=== PATIENT | male | born 1935 | race Caucasian/White ===

== ENCOUNTER 2016-12-07 06:43 | Emergency (ER) | payer OTHER ==
[~2016-12-07] VITALS: Ht 162.6 cm; Wt 64.0 kg
[2016-12-07 06:46] VITALS: Ht 162.6 cm; Wt 64.0 kg
[2016-12-07] MEDS ORDERED: ACETAMINOPHEN 325 MG TAB PO STA (06:59)
[2016-12-07] MEDS ORDERED: SODIUM CHLORIDE 0.9% 1L BAG IV* STA (06:59)
[2016-12-07 07:39] LABS: BASOPHILS % 0.1 % (0.0-2.0); EOSINOPHILS % 0.2 % (0.0-7.0); HEMATOCRIT 44.3 % (42.0-52.0); HEMOGLOBIN 15.3 g/dl (14.0-18.0); LYMPHOCYTES # 1.1 10^3/ul (0.8-2.9); MEAN CORPUSCULAR HEMOGLOBIN 30.2 pg (29.0-33.0); MEAN CORPUSCULAR HGB CONC 34.5 g/dl (32.0-37.0); MEAN CORPUSCULAR VOLUME 87.5 fl (82.0-101.0); MEAN PLATELET VOLUME 10.5 fl (7.4-10.4); MONOCYTES % 8.5 % (0.0-11.0); NEUTROPHIL # 9.5 10^3/ul (1.6-7.5); NEUTROPHILS % 81.8 % (39.0-77.0); PLATELET COUNT 181 10^3/UL (140-415); RED BLOOD COUNT 5.06 10^6/ul (4.70-6.10); RED CELL DISTRIBUTION WIDTH 12.3 % (11.5-14.5); WHITE BLOOD COUNT 11.6 10^3/ul (4.8-10.8)
[2016-12-07 07:58] LABS: ALANINE AMINOTRANSFERASE 31 IU/L (13-69); ALBUMIN 4.1 g/dl (3.3-4.9); ALBUMIN/GLOBULIN RATIO 1.02; ALKALINE PHOSPHATASE 94 IU/L (42-121); ANION GAP 16 (8-16); ASPARTATE AMINO TRANSFERASE 25 IU/L (15-46); BILIRUBIN,INDIRECT 0.7 mg/dl (0-1.1); BILIRUBIN,TOTAL 0.7 mg/dl (0.2-1.3); BLOOD UREA NITROGEN 14 mg/dl (7-20); CALCIUM 9.6 mg/dl (8.4-10.2); CARBON DIOXIDE 24 mmol/L (21-31); CHLORIDE 108 mmol/L (97-110); CREATININE 1.04 mg/dl (0.61-1.24); GLUCOSE 110 mg/dl (70-220); POTASSIUM 4.1 mmol/L (3.5-5.1); SODIUM 144 mmol/L (135-144); TOTAL PROTEIN 8.1 g/dl (6.1-8.1)
[2016-12-07 08:23] LABS: TROPONIN-I < 0.012 ng/ml (0.00-0.12)
[2016-12-07 08:36] LABS: INR 1.19; PROTIME 15.2 Sec (12.2-14.2); PT RATIO 1.2
[2016-12-07 08:37] LABS: PARTIAL THROMBOPLASTIN TIME 35.9 Sec (25.0-35.0)
[2016-12-07] MEDS ORDERED: CEFTRIAXONE 1 GM/50 ML (PMX) 50 ML IVPB STA (09:04)
[2016-12-07] MEDS ORDERED: AZITHROMYCIN 500MG/NS (PMX) 250 ML IV STA (09:04)
[2016-12-07 09:22] LABS: ADD UMIC NO; UR ASCORBIC ACID NEGATIVE (NEGATIVE); UR BILIRUBIN (Dip) NEGATIVE (NEGATIVE); UR BLOOD (Dip) NEGATIVE (NEGATIVE); UR CLARITY CLEAR (CLEAR); UR COLOR YELLOW (YELLOW); UR GLUCOSE (Dip) NEGATIVE (NEGATIVE); UR KETONES (Dip) NEGATIVE (NEGATIVE); UR LEUKOCYTE ESTERASE (Dip) NEGATIVE Leu/ul (NEGATIVE); UR NITRITE (Dip) NEGATIVE (NEGATIVE); UR SPECIFIC GRAVITY (Dip) 1.021 (1.003-1.030); UR TOTAL PROTEIN (Dip) NEGATIVE (NEGATIVE); UR UROBILINOGEN (Dip) NEGATIVE (NEGATIVE)
--- NOTE | 2016-12-07 09:37 | ERD ---
ER Documentation Chief Complaint Chief Complaint DIZZINESS AND WEAKNESS SINCE 12/04/16, NAUSEA AND VOMITING HPI This is an 81-year-old male who presents to the emergency room for evaluation of fever, weakness and a dry cough. Patient has had one episode of vomiting. The patient describes his vomit is nonbilious and nonbloody. The patient denies any chest pain at this time. He denies any aggravating or relieving factors for his symptoms and was brought to the ER for evaluation. He has not taken any medication at home for fever. The patient does state that he had a cataract removal from his left eye 48 hours ago. Patient has no other complaints at this time and came to the emergency room for further evaluation of his symptoms ROS All systems reviewed and are negative except as per history of present illness. Medications Home Meds No Active Prescriptions or Reported Meds Allergies Allergies: Coded Allergies: No Known Allergy (Unverified , 12/07/16) PMhx/Soc History of Surgery: Yes (lt eye cataract surgery ) Anesthesia Reaction: No Hx Neurological Disorder: No Hx Respiratory Disorders: No Hx Cardiac Disorders: No Hx Psychiatric Problems: No Hx Miscellaneous Medical Probl: No Hx Alcohol Use: No Hx Substance Use: No Hx Tobacco Use: No Smoking Status: Never smoker Physical Exam Vitals Vital Signs Date Time Temp Pulse Resp B/P Pulse Ox O2 Delivery O2 Flow Rate FiO2 12/07/16 09:00 98.8 70 18 116/62 97 Room Air 12/07/16 06:46 102.1 102 18 107/61 98 Physical Exam INITIAL VITAL SIGNS: Reviewed by me GENERAL: The patient is well developed and appropriate for usual state of health in no apparent distress HEENT: Dry mucous membranes, lens in place in left eye, pupils equal, round, and reactive to light. EOMI. There is no scleral icterus. NECK: C-spine is soft and supple, there is no meningismus. There is no cervical lymphadenopathy. LUNGS: Coarse breath sounds bilaterally. There are no rales, wheezes or rhonchi. HEART: Tachycardic, no murmurs, clicks, rubs or gallops. ABDOMEN: Soft, non-tender, non-distended. There are bowel sounds in all four quadrants. No rebound or guarding. EXTREMITIES: There is no peripheral cyanosis or edema. No focal swelling or erythema. NEUROLOGICAL: The patient moves all four extremities with 5/5 strength. Cranial nerves II - XII are intact. Normal gait. Alert and oriented SKIN: There is no apparent rash or petechiae. HEME/LYMPHATIC: There is no evidence of excessive bruising or lymphedema. PSYCHIATRIC: The patient does not appear anxious or depressed. Result Diagram: 12/07/16 0700 12/07/16 0700 Results 24 hrs Laboratory Tests Test 12/07/16 07:00 12/07/16 09:00 White Blood Count 11.610^3/ul Red Blood Count 5.0610^6/ul Hemoglobin 15.3g/dl Hematocrit 44.3% Mean Corpuscular Volume 87.5fl Mean Corpuscular Hemoglobin 30.2pg Mean Corpuscular Hemoglobin Concent 34.5g/dl Red Cell Distribution Width 12.3% Platelet Count 17132^3/UL Mean Platelet Volume 10.5fl Neutrophils % 81.8% Lymphocytes % 9.0% Monocytes % 8.5% Eosinophils % 0.2% Basophils % 0.1% Nucleated Red Blood Cells % 0.0/100WBC Neutrophils # 9.510^3/ul Lymphocytes # 1.110^3/ul Monocytes # 1.010^3/ul Eosinophils # 0.010^3/ul Basophils # 0.010^3/ul Nucleated Red Blood Cells # 0.010^3/ul Prothrombin Time 15.2Sec Prothrombin Time Ratio 1.2 INR International Normalized Ratio 1.19 Activated Partial Thromboplast Time 35.9Sec Sodium Level 144mmol/L Potassium Level 4.1mmol/L Chloride Level 108mmol/L Carbon Dioxide Level 24mmol/L Anion Gap 16 Blood Urea Nitrogen 14mg/dl Creatinine 1.04mg/dl Glucose Level 110mg/dl Lactic Acid Level 1.9mmol/L 1.4mmol/L Calcium Level 9.6mg/dl Total Bilirubin 0.7mg/dl Direct Bilirubin 0.00mg/dl Indirect Bilirubin 0.7mg/dl Aspartate Amino Transf (AST/SGOT) 25IU/L Alanine Aminotransferase (ALT/SGPT) 31IU/L Alkaline Phosphatase 94IU/L Troponin I < 0.012ng/ml Total Protein 8.1g/dl Albumin 4.1g/dl Globulin 4.00g/dl Albumin/Globulin Ratio 1.02 Urine Color YELLOW Urine Clarity CLEAR Urine pH 5.0 Urine Specific [place] 1.021 Urine Ketones NEGATIVEmg/dL Urine Nitrite NEGATIVEmg/dL Urine Bilirubin NEGATIVEmg/dL Urine Urobilinogen NEGATIVEmg/dL Urine Leukocyte Esterase NEGATIVELeu/ul Urine Hemoglobin NEGATIVEmg/dL Urine Glucose NEGATIVEmg/dL Urine Total Protein NEGATIVEmg/dl Current Medications Medications (Trade) Dose Ordered Sig/Maria Teresa Route PRN Reason Start Time Stop Time Status Last Admin Dose Admin Sodium Chloride (NS) 1,980 ml BOLUS OVER 2 HOURS STAT IV* 12/07/16 06:59 12/07/16 07:00 DC 12/07/16 07:13 Acetaminophen 650 mg 650 mg ONCE STAT PO 12/07/16 06:59 12/07/16 07:00 DC 12/07/16 07:12 Azithromycin 250 ml @ 250 mls/hr ONCE STAT IV 12/07/16 09:04 12/07/16 10:03 Ceftriaxone Sodium (Rocephin) 50 ml @ 100 mls/hr ONCE STAT IVPB 12/07/16 09:04 12/07/16 09:33 DC 12/07/16 09:15 Procedures/MDM Chest X-ray 1V Interpreted by me: Soft Tissue: Left lower lobe pneumonia Bones: No acute abnormalities Mediastinum/Cardiac Silhouette/Lungs: [No acute abnormalities] EKG: Rate/Rhythm: [Normal Sinus Rhythm] QRS, ST, T-waves: [No changes consistent w/ acute ischemia] Impression: [No evidence of ischemia or arrhythmia] This is an 81-year-old male who presents to the ER for evaluation of a fever. When I evaluated this patient he was febrile, tachycardic. The patient did have blood work drawn in the emergency room and x-ray was obtained which does show a left lobe pneumonia. This patient did receive 30 cc/kg of IV normal saline. The patient was started on Rocephin and azithromycin after blood and urine cultures were obtained. This patient will be transferred to [facility] based off of his insurance which Irritates him to that hospital. The patient is hemodynamically stable at this time with no signs of hypotension and no need for vasopressors. He does meet sepsis criteria and will be transferred. Critical Care: Excluding all billable procedures Time: 35 minutes Treatments/Evaluations: Close monitoring and treatment of unstable vital signs, cardiorespiratory, and neurologic status, while maintaining tight balance of fluid, respiratory, and cardiac interventions. Departure Diagnosis: Primary Impression: Sepsis Additional Impression: Left lower lobe pneumonia Condition: Stable VANESSA SOUZA DO Dec 07, 2016 09:37
--- NOTE | 2016-12-07 15:04 | RADRPT ---
PROCEDURE: XR Chest. CLINICAL INDICATION: Dizziness. TECHNIQUE: Single frontal view. COMPARISON: None. FINDINGS: There is mild left basilar atelectasis or pneumonia. The lungs are otherwise clear. The heart size is normal. There is no pleural effusion. There is no pneumothorax. There are degenerative changes of the right glenohumeral joint. IMPRESSION: 1. Mild atelectasis or pneumonia at the left lung base. 2. Degenerative changes of the right glenohumeral joint. 3. Otherwise normal chest x-ray. RPTAT: QQ .Waldo Yepez MD, Date Time Electronically viewed and signed by .Waldo Yepez MD, on 12/07/2016 15:03 .R/
[2016-12-07] MEDS ORDERED: ALBU8.5H3 INH (22:12)
[2016-12-07] MEDS ORDERED: LEVO500T72 PO (22:12)
[2016-12-07] MEDS ORDERED: IBUP400T22 PO (22:12)
[2016-12-07] MEDS ORDERED: IBUPROFEN 200 MG TAB ONE (22:30)
[2016-12-07] MEDS ORDERED: IBUPROFEN 200 MG TAB PO ONE (23:00)
--- NOTE | 2016-12-07 23:01 | EN ---
Date/Time of Note Date/Time of Note DATE: 12/07/16 TIME: 22:52 ER Progress Note HPI: 81-year-old man here already for 15 hours, diagnosed with sepsis and left- sided pneumonia was set up for transfer but the admitting physician Dr. Keys was unable to connect with the ED physician to accept the transfer. At this point patient has no complaints and states he feels much better compared to when he came in. He denies chest pain or shortness of breath. Past medical history: Physical exam: GENERAL: Well-developed, well-nourished, well-hydrated, in no apparent distress , looks nontoxic in appearance HEENT: Moist mucous membranes, pink conjunctiva, no cervical spine tenderness or step-off deformities, no goiter, no jaundice or icterus, extraocular movements intact without pain. No submandibular induration, and no pharyngeal erythema NEURO: Alert and oriented 3, cranial nerves II through XII intact bilaterally, pupils equal round reactive to light, no focal deficits or facial asymmetry, sensation intact distally Strength 5/5 in upper and lower extremities bilaterally CARDIAC: Regular rate and rhythm, no murmurs rubs or gallops LUNGS: Clear bilaterally no wheezing crackles or stridor ABDOMEN: Soft nontender, no guarding, no rigidity, no rebound, no psoas sign no obturator sign. Normoactive bowel sounds SKIN: Warm and dry to touch, no abrasions, contusions, or hematomas, no lacerations, no ecchymosis, no target lesions, and without ulcers EXTREMITIES: No clubbing cyanosis or edema, calves are bilaterally symmetrical, no Homans sign, no popliteal cord sign. Distal pulses equal and bilateral PSYCH: Normal affect without agitation or irritability Medical decision making: I spoke to Dr. Keys regarding the patient's ED evaluation, imaging, and labs. The lactic acid has been below 2, his vital signs are normal, is curb 65 score is 1 for age and PSI score is 3 both of which portend a favorable prognosis with outpatient management and oral antibiotics. Dr. Keys stated he would set up for outpatient reevaluation and follow-up. Patient was informed of today's workup and management, and agreed and preferred outpatient management at home with oral antibiotics. Differential diagnoses considered, included but not limited to acute coronary syndrome, pulmonary embolism, aortic dissection, abdominal aortic aneurysm, sepsis, stroke, meningitis, encephalitis, pneumonia, appendicitis, cholecystitis , bowel obstruction, pyelonephritis, nephrolithiasis, cystitis, as well as metabolic, hematologic, and electrolyte abnormalities. As well as abscess, cellulitis, fractures, and dislocations. Patient feels much better at this time, and vital signs are normal, symptoms have improved. I did give strict instructions to return to the ED if symptoms continue or worsen, patient will otherwise follow-up with primary care physician. Patient understood instructions and agreed to plan. Disclaimer: Inadvertent spelling and grammatical errors are likely due to EHR/ dictation software use and do not reflect on the overall quality of patient care. Also, please note that the electronic time recorded on this note does not necessarily reflect the actual time of the patient encounter. Diagnostic impression: Community-acquired pneumonia MARIA C PÉREZ MD Dec 07, 2016 23:01
[2016-12-08 00:16] VITALS: BP 123/67; PULSE 87; RESP 19; TEMP 100
== END 2016-12-08 00:18 | disposition home or self-care (01) ==
LOC: E/R 06:43
DX: A41.9 Sepsis, unspecified organism (principal); J18.1 Lobar pneumonia, unspecified organism
CPT/HCPCS: 36415; 71010; 80053; 81003; 83605; 84484; 85025; 85610; 85730; 87040; 87086; 87400; 93005; 96374; 96375; J0456; J0696; J7030; Z7502; Z7610

== ENCOUNTER 2016-12-09 11:52 | Emergency (ER) | payer OTHER ==
[~2016-12-09] VITALS: Wt 65.5 kg
[~2016-12-09 11:52] MED LIST: ALBU8.5H3 INH; IBUP400T22 PO; LEVO500T72 PO
--- NOTE | 2016-12-09 14:30 | RADRPT ---
PROCEDURE: XR Chest. CLINICAL INDICATION: Pneumonia. Dyspnea. TECHNIQUE: Single frontal chest x-ray. COMPARISON: Chest x-ray 12/07/2016 FINDINGS: Subtle interstitial infiltration is seen within the lung bases, right greater than left, the appeara nces are new/worse when compared to the previous study. Subtle developing pneumonia is a definite c onsideration. The cardiomediastinal silhouette is unremarkable. There is no pneumothorax. The surrou nding osseous structures are remarkable for benign chronic senescent changes. Chronic degenerative c hanges of the shoulder joints is seen bilaterally. IMPRESSION: 1. Patchy infiltration / pneumonia developing within the lung bases bilaterally. 2. Benign chronic senescent changes seen elsewhere throughout the study, stable. RPTAT: PP .David Solares MD, Date Time Electronically viewed and signed by .David Solares MD, MD on 12/09/2016 14:29 .B/
--- NOTE | 2016-12-09 15:11 | RADRPT ---
PROCEDURE: CT Abdomen and Pelvis without intravenous contrast. CLINICAL INDICATION: Right flank pain . Possible sepsis TECHNIQUE: CT scan of the abdomen and pelvis without intravenous contrast was performed on a multi -slice CT scanner. Coronal and sagittal reformatted images were obtained from the axial source image s. Images were reviewed on a high-resolution PACS workstation. Total DLP = 437.6 mGy-cm. CTDIvol = 6.9 mGy. One or more of the following dose reduction techniques were used: Automated exposure control. Adjustment of the mA and/or kV according to patient size. Use of iterative reconstruction technique. COMPARISON: None. FINDINGS: CT abdomen and pelvis: The lung bases demonstrates mild focal consolidation and trace right pleural effusion at the right l bradley base.. The heart size is normal in size. The liver is normal in size and density without focal mass or intrahepatic biliary dilatation. There are hepatic cysts seen in the left lobe of the liver .. The spleen is normal in size and homogeneous in density. The pancreas as visualized is normal. The gallbladder shows no evidence of stones or distension . The adrenal glands are normal. The kidneys are symmetrically unremarkable. No urolithiasis, obstructive uropathy, or solid mass lesion is seen. There is a right renal cyst present. The stomach is partially collapsed, but is grossly unremarkable. There is a moderate hiatal hernia.. The small bowels are unremarkable. The colon and rectum are normal. There is no evidence of appen dicitis or diverticulitis. The pelvic organs are normal. The bladder is normal. There is no abdomina l or pelvic adenopathy, free fluid, free air, mass or mesenteric inflammation. The aorta is normal in caliber and course. The osseous structures showing degenerative enthesopathy of the spine. No osteolytic or osteoblastic lesions are identified. There is mild left inguinal he rnia containing fat.. Lack of IV and oral contrast limits sensitivity of exam. IMPRESSION: 1. Focal right basilar pulmonary consolidation and trace right pleural effusion. Findings suspiciou s for right basilar pneumonia with parapneumonic effusion which may be the cause of right flank pain . 2. Hepatic and right renal cyst. 3. Moderate hiatal hernia. 4. Mild fat-containing left inguinal hernia. RPTAT: GG .Bryan Lang MD, MD Date Time Electronically viewed and signed by .Bryan Lang MD, MD on 12/09/2016 15:10 .L/
[2016-12-09] MEDS ORDERED: AZITHROMYCIN 500MG/NS (PMX) 250 ML IV STA (15:45)
[2016-12-09] MEDS ORDERED: CEFTRIAXONE 1 GM/50 ML (PMX) 50 ML IVPB STA (15:45)
--- NOTE | 2016-12-09 16:40 | ERD ---
ER Documentation Chief Complaint Chief Complaint r. flank pain, dizziness. seem here on mon dx w pneumonia HPI This is an 81-year-old male who presents to the ER for evaluation of shortness of breath, generalized weakness and right-sided flank pain. The patient states that he was diagnosed with pneumonia last week. Patient's family states that they do not not know why they were discharged from the hospital. The patient came to the ER today for evaluation of his symptoms and states that he has been taking antibiotics as an outpatient but does not know the name of them. He denies any chills but does state he has had a fever and denies any relieving factors for her symptoms ROS All systems reviewed and are negative except as per history of present illness. Medications Home Meds Active Scripts Levofloxacin* (Levaquin*) 500 Mg Tablet, 500 MG PO DAILY for 6 Days, TAB Prov:MARIA C PÉREZ MD 12/07/16 Discontinued Scripts Ibuprofen* (Motrin*) 400 Mg Tab, 400 MG PO Q8 for FEVER, #30 TAB Prov:MARIA C PÉREZ MD 12/07/16 Albuterol Sulfate* (Proair HFA*) 8.5 Gm Hfa.aer.ad, 2 PUFF INH Q6H Y for COUGH, #1 INHALER Prov:MARIA C PÉREZ MD 12/07/16 Allergies Allergies: Coded Allergies: No Known Allergy (Unverified , 12/09/16) PMhx/Soc History of Surgery: Yes (lt eye cataract surgery ) Anesthesia Reaction: No Hx Neurological Disorder: No Hx Respiratory Disorders: No Hx Cardiac Disorders: No Hx Psychiatric Problems: No Hx Miscellaneous Medical Probl: No Hx Alcohol Use: No Hx Substance Use: No Hx Tobacco Use: No Smoking Status: Never smoker Physical Exam Vitals Vital Signs Date Time Temp Pulse Resp B/P Pulse Ox O2 Delivery O2 Flow Rate FiO2 12/09/16 16:32 98.9 89 18 128/65 99 Room Air 12/09/16 11:56 100.4 79 20 121/65 96 Physical Exam INITIAL VITAL SIGNS: Reviewed by me GENERAL: The patient is elderly male no acute distress, warm to touch HEENT: Pupils equal, round, and reactive to light. EOMI. There is no scleral icterus. NECK: C-spine is soft and supple, there is no meningismus. There is no cervical lymphadenopathy. LUNGS: Coarse rhonchi bilaterally HEART: Regular rate and rhythm, no murmurs, clicks, rubs or gallops. ABDOMEN: Soft, non-tender, non-distended. There are bowel sounds in all four quadrants. No rebound or guarding. EXTREMITIES: There is no peripheral cyanosis or edema. No focal swelling or erythema. NEUROLOGICAL: The patient moves all four extremities with 5/5 strength. Cranial nerves II - XII are intact. Normal gait. Alert and oriented SKIN: There is no apparent rash or petechiae. HEME/LYMPHATIC: There is no evidence of excessive bruising or lymphedema. PSYCHIATRIC: The patient does not appear anxious or depressed. Result Diagram: 12/09/16 1400 12/09/16 1400 Results 24 hrs Laboratory Tests Test 12/09/16 14:00 12/09/16 14:15 White Blood Count 8.310^3/ul Red Blood Count 4.8110^6/ul Hemoglobin 14.8g/dl Hematocrit 42.1% Mean Corpuscular Volume 87.5fl Mean Corpuscular Hemoglobin 30.8pg Mean Corpuscular Hemoglobin Concent 35.2g/dl Red Cell Distribution Width 12.2% Platelet Count 52654^3/UL Mean Platelet Volume 10.9fl Neutrophils % 60.9% Lymphocytes % 18.1% Monocytes % 19.8% Eosinophils % 0.6% Basophils % 0.1% Nucleated Red Blood Cells % 0.0/100WBC Neutrophils # 5.110^3/ul Lymphocytes # 1.510^3/ul Monocytes # 1.610^3/ul Eosinophils # 0.110^3/ul Basophils # 0.010^3/ul Nucleated Red Blood Cells # 0.010^3/ul Prothrombin Time 14.7Sec Prothrombin Time Ratio 1.1 INR International Normalized Ratio 1.15 Activated Partial Thromboplast Time 44.9Sec Sodium Level 142mmol/L Potassium Level 3.4mmol/L Chloride Level 104mmol/L Carbon Dioxide Level 24mmol/L Anion Gap 17 Blood Urea Nitrogen 11mg/dl Creatinine 0.94mg/dl Glucose Level 118mg/dl Lactic Acid Level 1.9mmol/L Calcium Level 9.1mg/dl Total Bilirubin 1.2mg/dl Direct Bilirubin 0.00mg/dl Indirect Bilirubin 1.2mg/dl Aspartate Amino Transf (AST/SGOT) 26IU/L Alanine Aminotransferase (ALT/SGPT) 25IU/L Alkaline Phosphatase 72IU/L Troponin I < 0.012ng/ml Total Protein 8.1g/dl Albumin 4.6g/dl Globulin 3.50g/dl Albumin/Globulin Ratio 1.31 Urine Color HARPREET Urine Clarity CLEAR Urine pH 5.0 Urine Specific [place] 1.029 Urine Ketones NEGATIVEmg/dL Urine Nitrite NEGATIVEmg/dL Urine Bilirubin NEGATIVEmg/dL Urine Urobilinogen 1+mg/dL Urine Leukocyte Esterase NEGATIVELeu/ul Urine Microscopic RBC 1/HPF Urine Microscopic WBC 2/HPF Urine Bacteria FEW/HPF Urine Mucus MANY/HPF Urine Hemoglobin NEGATIVEmg/dL Urine Glucose NEGATIVEmg/dL Urine Total Protein 2+mg/dl Current Medications Medications (Trade) Dose Ordered Sig/Maria Teresa Route PRN Reason Start Time Stop Time Status Last Admin Dose Admin Ceftriaxone Sodium 50 ml @ 100 mls/hr ONCE STAT IVPB 12/09/16 15:45 12/09/16 16:14 DC 12/09/16 15:57 Azithromycin (Zithromax 500mg/ NS (Pmx)) 250 ml @ 250 mls/hr ONCE STAT IV 12/09/16 15:45 12/09/16 16:44 12/09/16 16:23 Procedures/MDM EKG: Rate/Rhythm: [Normal Sinus Rhythm] QRS, ST, T-waves: [No changes consistent w/ acute ischemia] Impression: [No evidence of ischemia or arrhythmia] Chest X-ray 1V Interpreted by me: Soft Tissue: No acute abnormalities Bones: No acute abnormalities Mediastinum/Cardiac Silhouette/Lungs: Right lobe pneumonia CT abdomen pelvis without:: 1. Focal right basilar pulmonary consolidation and trace right pleural effusion. Findings suspicious for right basilar pneumonia with parapneumonic effusion which may be the cause of right flank pain. 2. Hepatic and right renal cyst. 3. Moderate hiatal hernia. 4. Mild fat-containing left inguinal hernia. This 81-year-old male presents to the ER for the second time this week for evaluation of pneumonia. I evaluated this patient in the emergency room earlier this week. The patient was diagnosed with pneumonia and he was supposed be transferred however it appears that this patient was discharged from the ER per the admitting physician's request. This patient returns today for a worsening symptoms and as worsening pneumonia on his chest x-ray which is confirmed in the CT. The patient was started on community-acquired coverage in the emergency room and will be transferred over to [facility] at this time. I spoken to Dr. Danielle who accepts transfer. This patient is hemodynamically stable at this time and not hypoxic, he has failed outpatient pneumonia treatment Departure Diagnosis: Primary Impression: Right lower lobe pneumonia Additional Impression: Failure of outpatient treatment Condition: Stable VANESSA SOUZA DO Dec 09, 2016 16:40
[2016-12-09] MEDS ORDERED: ACETAMINOPHEN 325 MG TAB ONE (19:34)
[2016-12-09 19:42] VITALS: BP 114/64; PULSE 82; RESP 16; TEMP 100.7
== END 2016-12-09 20:16 | disposition short-term general hospital (02) ==
LOC: E/R 11:52
DX: J18.1 Lobar pneumonia, unspecified organism (principal)
CPT/HCPCS: 71010; 74176; 80053; 81001; 83605; 84484; 85025; 85610; 85730; 87040; 87086; 93005; J0456; J0696; Z7610; 36415; 96374; 96375